=== PATIENT | female | born 1970 | race Caucasian/White ===

== ENCOUNTER 2018-07-29 19:34 | Inpatient (IN) ==
[2018-07-29 20:21] LABS: Basophils # 0.1 K/mm3 (0-0.2); Basophils % 0.5 % (0.1-2.0); Eosinophils # 0.5 K/mm3 (0.0-0.4); Hematocrit 42.7 % (37.0-47.0); Lymphocytes # 3.6 K/mm3 (0.7-4.5); Lymphocytes % 22.4 % (10-50); Mean Corpuscular HGB Conc 32.7 g/dL (31.8-35.4); Mean Corpuscular Hemoglobin 30.1 pg (27.0-31.2); Mean Platelet Volume 7.4 fl (7.4-10.4); Monocytes # 0.9 K/mm3 (0.1-1.0); Monocytes % 5.4 % (1.7-9.3); Neutrophils % 68.8 % (37.0-80.0); Platelet Count 581 K/mm3 (142-424); Red Blood Count 4.64 M/mm3 (4.20-5.40); Red Cell Distribution Width 14.1 % (11.5-17.5)
[2018-07-29 20:31] LABS: Albumin Level 3.8 gm/dL (3.4-5.0); Albumin/Globulin Ratio 0.9 (1.1-1.8); Bilirubin,Total 0.4 mg/dL (0.2-1.0); Calcium 8.9 mg/dL (8.5-10.1); Globulin 4.4 gm/dl (1.3-3.2); Total Protein,Serum 8.2 gm/dL (6.4-8.2)
--- NOTE | 2018-07-29 20:34 | Emergency Department Note ---
ED Disposition Clinical Impression: Enteritis due to Escherichia coli Disposition: Admitted as Observation Condition on Discharge: Good - Critical Care Critical Care Time: No Attestation: On 07/29/18, the high probability of a clinically significant, sudden or life threatening deterioration of the following system(s) required my full and direct attention, intervention and personal management. The time I documented below is in addition to time spent performing reported procedures but includes the following listed in this critical care notation. Medical Decision Making - Medical Records Medical records reviewed: Yes: I reviewed the patient's medical records. - Robert Inquiry Pt receiving controlled substance: No Vital Signs: 07/29/18 19:40 07/29/18 20:30 07/29/18 21:56 Temperature 98.9 F 98.9 F Temperature Source Temporal Artery Scan Temporal Artery Scan Pulse Rate [Right Brachial] 85 80 81 Respiratory Rate 16 16 18 Blood Pressure [Right Arm] 132/70 136/71 133/72 Blood Pressure Mean [Right Arm] 90 92 92 Blood Pressure Source [Right Arm] Automatic Cuff Automatic Cuff Automatic Cuff Blood Pressure Position [Right Arm] Sitting Sitting Sitting 02 Sat by Pulse Oximetry 98 98 98 Oxygen Delivery Method Room Air Room Air Room Air - Lab Data Lab results reviewed: Yes: I reviewed the patient's lab results. Lab Results 07/29/18 19:55: WBC 16.0 H, RBC 4.64, Hgb 14.0, Hct 42.7, MCV 92.0, MCH 30.1, MCHC 32.7, RDW 14.1, Plt Count 581 H, MPV 7.4, Neut % (Auto) 68.8, Lymph % (Auto) 22.4, [place] % (Auto) 5.4, Eos % (Auto) 3.0, Baso % (Auto) 0.5, Neut # (Au to) 11.0 H, Lymph # (Auto) 3.6, [place] # (Auto) 0.9, Eos # (Auto) 0.5 H, Baso # (Auto) 0.1, Total Counted 100, Neutrophils % (Manual) 85 H, Band Neutrophils % 4.0, Lymphocytes % (Manual) 10, Monocytes % (Manual) 1 L, Platelet Estimate Moderate increase, RBC Morphology Normal 07/29/18 19:55: Sodium 135 L, Potassium 4.0, Chloride 101, Carbon Dioxide 21, Anion Gap 17.0 H, BUN 12, Creatinine 0.74, Estimated Creat Clear 103, Estimated GFR 83, Est GFR ( Amer) 101, Glucose 98, Calcium 8.9, Total Bilirubin 0.4, AST 15, ALT 25, Alkaline Phosphatase 149 H, Total Protein 8.2, Albumin 3.8, Globulin 4.4 H, Albumin/Globulin Ratio 0.9 L, Amylase 23 L, Lipase 50 L 07/29/18 19:55: Lactate 0.7 07/29/18 19:55: Influenza Type A Ag Negative, Influenza Type B Ag Negative 07/29/18 19:55: ESR 43 H 07/29/18 19:55: C-Reactive Protein 0.8 07/29/18 20:37: Urine Color Yellow, Urine Appearance Sl cloudy, Urine pH 6.0, Ur Specific [place] 1.010, Urine Protein Negative, Urine Glucose (UA) Negative, Urine Ketones Negative, Urine Blood Negative, Urine Nitrate Negative, Urine Bilirubin Negative, Urine Urobilinogen 0.2, Ur Leukocyte Esterase Negative, Urine WBC Occasional, Ur Squamous Epith Cells 20-50 07/29/18 20:40: Stl Aeromonas (PCR) Not detected, Stl C. cayetanensis PCR Not detected, Stool Rotavirus (PCR) Not detected, Stl Adenov F 40/41 PCR Not detected, Stool Astrovirus (PCR) Not detected, Stool Campylobacter PCR Not detected, Stl C.difficile Tox PCR Not detected, Stool Cryptosporidium PCR Not detected, Stl E.coli Shiga Tox PCR Not detected, Stool E coli O157 PCR Not detected, Stl Enterotoxigenic E PCR Not detected, Stool EPEC (PCR) Detected A, Stool EAEC (PCR) Detected A, Stl E. histolytica PCR Not detected, Stool Giardia Lamblia PCR Not detected, Stool Salmonella PCR Not detected, Stool Sapovirus (PCR) Not detected, Stl P. shigelloides PCR Not detected, Stl Shigella/EIEC PCR Not detected, St Y.enterocolitica PCR Not detected, Stool Vibrio (PCR) Not detected, Stl Vibrio cholerae PCR Not detected, Stl Norovirus GI/GII PCR Not detected Result diagrams: 07/29/18 19:55 07/29/18 19:55 Orders (Tests/Meds): ED MEDICATIONS Generic Name Dose Route Start Last Admin Trade Name Freq PRN Reason Stop Dose Admin Sodium Chloride 1,000 mls @ 999 mls/hr 07/29/18 20:45 07/29/18 20:35 Sod Chlor 0.9% 1000ml Bag IV 07/29/18 21:45 999 mls/hr .Q1H1M DEVON Administration Sodium Chloride 1,000 mls @ 999 mls/hr 07/29/18 22:00 07/29/18 21:55 Sod Chlor 0.9% 1000ml Bag IV 07/29/18 23:00 999 mls/hr .Q1H1M DEVON Administration Discontinued Medications Generic Name Dose Route Start Last Admin Trade Name Freq PRN Reason Stop Dose Admin Methylprednisolone Sodium Succinate 125 mg 07/29/18 21:37 07/29/18 21:39 Solu-Medrol 125mg/2ml Vial IV 07/29/18 21:38 125 mg ONCE ONE Administration Morphine Sulfate 4 mg 07/29/18 22:02 07/29/18 22:04 Morphine 4mg/Ml Syringe IV 07/29/18 22:03 4 mg ONCE ONE Administration Ondansetron HCl 4 mg 07/29/18 21:37 07/29/18 21:39 Zofran 4mg/2ml Vial IV 07/29/18 21:38 4 mg ONCE ONE Administration Ondansetron HCl 4 mg 07/29/18 22:02 Zofran 4mg/2ml Vial IV 07/29/18 22:03 ONCE ONE ORDERS Category Date Time Status CT abdomen pelvis wo con Stat Cat Scan 07/29/18 19:48 Taken XR chest 2V Stat Exams 07/29/18 19:48 Taken Urinalysis and Microscopic Stat Lab 07/29/18 20:37 Ordered Blood Culture Stat Micro 07/29/18 19:55 Received - Radiology Data #1 Image(s): Chest Image Reviewed: Yes I reviewed the patient's radiology image Preliminary Findings: Normal/NAD - CT Data CT Scan: Abdomen, Pelvis Time Received: 23:[address] Reviewed: Yes: I have viewed the radiologist's interpretation Preliminary Findings: Abnormal - Physician Consults Physician Consulted: nydia Reason -: Admission Nausea/Vomiting/Diarrhea HPI - General Chief complaint: Abdominal Pain Stated complaint: Chest congestion,ab pain, passing blood Time Seen by Provider: 07/29/18 20:00 Mode of Arrival: Ambulatory Limitations: No Limitations Description of Symptoms (Recalled from ER Triage Doc. by RN): Pt c/o abd pain with bloody diarrhea, fever, vomiting. Pt has hx of colitis, pancreatitis. Advises pain started around 2am - History of Present Illness HPI Narrative: pt with malaise and fever with abd pain over the last day assoc with bloody diarrhea - has hx of colitis and pancreatitis - no etoh and no known exposure or raw food MD complaint: nausea, vomiting, diarrhea, abdominal pain Onset (ago): day(s) Description of Vomiting: bloody Associated Abdominal Pain: Yes Location of pain: diffuse Severity: moderate Associated symptoms: fever/chills, nausea/vomiting - Related Data Home Medications Medication Instructions Recorded Confirmed Lisinopril/Hydrochlorothiazide 1 tab PO TID 05/26/18 07/29/18 [Lisinopril-Hctz 20-25 mg Tab] cloNIDine HCl [cloNIDine 0.2mg 0.2 mg PO TID 05/26/18 07/29/18 Tablet] Gabapentin [Gabapentin 300mg Cap] 300 mg PO DAILY 07/29/18 07/29/18 Inhaler, Assist Devices 1 each MC DAILY 07/29/18 07/29/18 [Aerochamber Mini] Allergies Allergy/AdvReac Type Severity Reaction Status Date / Time guaifenesin [From ROBITUSSIN] Allergy Intermediate I-HIVES Verified 07/29/18 19:44 ketorolac [From TORADOL] Allergy Intermediate ITCHING/SWE Verified 07/29/18 19:44 LLING pentazocine [From TALWIN] AdvReac Mild VOMITING Verified 07/29/18 19:[address] [facility] History - Hepatitis A Screen Drug use history?: No High risk sexual behaviors?: No History of sexually transmitted infection?: No Currently employed?: No Childcare worker?: No Do you have indoor plumbing?: Yes Do you have electricity?: Yes Attestation statement:: This patient has been screened for Hepatitis A risk factors. I have reviewed the patient's past medical history: Yes Medical History: Denies:: Diabetes Mellitus Type 1, Diabetes Mellitus Type 2 Amputation: No - Social History Alcohol Intake: never - Psychiatric History Expresses thoughts of harming self/others: None Suicide Plan Description: No Plan ROS Obtained: Yes All systems reviewed & no additional complaints - Constitutional Constitutional: Reports fever(s) - Eyes Eyes: Denies change in vision - ENT Ears, Nose, Mouth, and Throat: Denies dizziness, Denies sore throat - Cardiovascular Cardiovascular: Denies chest pain, Denies slow heart rate - Respiratory Respiratory: Yes cough, No coughing up blood - Gastrointestinal Gastrointestingal: Reports: abdominal pain, cramping, diarrhea, bright red blood in stools, nausea, vomiting - Genitourinary Female Genitourinary: Denies hematuria - Musculoskeletal Musculoskeletal: Denies neck pain - Integumentary/Breasts Skin/Breast: Denies rash - Neurologic Neurologic: Denies seizure-like activity Physical Exam - General General appearance: alert, in no apparent distress - Head Head exam: normocephalic - Eye Eye exam: Present: PERRL, EOMI. Absent: scleral icterus - ENT ENT exam: Present: mucous membranes dry - Neck Neck exam: Present: trachea midline - Respiratory Respiratory exam: Present: normal lung sounds bilaterally. Absent: respiratory distress - Cardiovascular Cardiovascular exam: Present: regular rate - Abdominal Exam Abdominal exam: Present: tenderness Abdominal tenderness: Present: diffuse, moderate - Extremities Exam Extremities exam: Present: full ROM - Neurological Exam Neurological exam: Present: alert, oriented X3, CN II-XII intact - Psychiatric Psychiatric exam: Present: normal affect - Skin Skin exam: Absent: rash
[2018-07-29 20:41] LABS: Microscopic, Urine URINE MICROSCOPIC (MICROSCOPIC)
[2018-07-29 20:56] LABS: Appearance,Urine SL CLOUDY (Clear); Bilirubin,Urine Negative (Negative); Blood, Urine Negative (Negative); Color,Urine YELLOW (Yellow); Glucose,Urine (UA) Negative (Negative); Ketones,Urine Negative (Negative); Leukocyte Esterase,Urine Negative (Negative); Protein,Urine Negative (Negative); Urobilinogen,Urine 0.2 EU/dl (0.2)
[2018-07-29 21:00] LABS: Squamous Epithelial Cell,Urine 20-50 #/hpf (0-5); WBC,Urine Occasional #/hpf (0-3)
[2018-07-29 21:12] LABS: Lymphocytes % 10 % (10-50); Monocytes % 1 % (2-9); Neutrophils % 85 % (42-76); RBC Morphology Normal; Total Cells Counted 100
[2018-07-30 06:14] LABS: Basophils % 0.2 % (0.1-2.0); Eosinophils # 0.1 K/mm3 (0.0-0.4); Eosinophils % 0.6 % (0.1-12.0); Hematocrit 38.8 % (37.0-47.0); Hemoglobin 12.7 g/dL (12.2-16.2); Lymphocytes # 1.1 K/mm3 (0.7-4.5); Lymphocytes % 10.3 % (10-50); Mean Corpuscular HGB Conc 32.9 g/dL (31.8-35.4); Mean Corpuscular Hemoglobin 29.8 pg (27.0-31.2); Mean Corpuscular Volume 90.6 fl (81-99); Mean Platelet Volume 7.8 fl (7.4-10.4); Monocytes # 0.1 K/mm3 (0.1-1.0); Neutrophils # 9.6 K/mm3 (1.8-7.8); Neutrophils % 87.9 % (37.0-80.0); Platelet Count 492 K/mm3 (142-424); Red Blood Count 4.28 M/mm3 (4.20-5.40); Red Cell Distribution Width 14.2 % (11.5-17.5); White Blood Count 10.9 K/mm3 (4.8-10.8)
[2018-07-30 06:21] LABS: Anion Gap 15.9 mEq/L (5-15); Calcium 8.3 mg/dL (8.5-10.1); Potassium 3.9 mmoL/L (3.5-5.1)
[2018-07-30 06:45] LABS: Lymphocytes % 14 % (10-50); Neutrophils % 84 % (42-76); RBC Morphology Normal; Total Cells Counted 100
--- NOTE | 2018-07-30 06:57 | History & Physical Report ---
*Admission Date: 07/30/18 *Chief complaint: Abdominal pain *History of present illness: 48-year-old female with history of pancreatic insufficiency and lupus presented to the emergency department with just under 24 hours of left-sided abdominal pain. Patient reports a history of colitis. Her pain had started Tuesday at midnight. Her last meal was a shared family meal of pork and pot roast. After onset of pain patient tried to tough it out at home but when pain did not improve she presented to the hospital for evaluation. In the emergency department she had some retching along with complaint of pain. She had an elevated white blood cell count. She had an abnormal CT scan with a focal area of early inflammation in the sigmoid colon. Her abdominal exam was somewhat benign. Due to the elevated white count, confirmation of E. coli in the stool, retching and level of pain patient was admitted for observation. This morning she states she still feels uncomfortable. She has not had any further retching or vomiting. She has not attempted to have any liquids overnight. She reports her last CT scan was approximately 3 months ago. 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 She describes having a volvulus that did not require surgery. She denies any diagnosis of Crohn's disease or ulcerative colitis, although describes ulcers being found on her upper endoscopy. [facility] History Medical History: Reports:: Arrhythmia, Deep Vein Thrombosis, Hyperlipidemia, H ypertension, Palpitations Denies:: Cancer, Diabetes Mellitus Type 1, Diabetes Mellitus Type 2, MRSA Other Medical History: Reports: Anemia, Arthritis, Fibromyalgia, Hoarseness, Sinus Problems Comment: Pancreatic insufficiency, lupus Laterality Cases: Left: Arthroscopy Knee Other Surgeries: Yes: Cholecystectomy, Colonoscopy, Colostomy, Diagnostic Lap, EGD, Hysterectomy-Partial, Tubal Ligation Amputation: No Fractures: Yes (bilateral upper and lower legs, ribs, orbital socket, shoulders, nasal, toe) - *Social History Educational Level: Completed College Smoking Status: Never smoker Alcohol Intake: never Occupational Status: disabled Housing: house Household Members: significant other, children, friend(s) - Psychiatric History Expresses thoughts of harming self/others: None Suicide Plan Description: No Plan *Family Hx:: Cancer, Hyperlipidemia, Hypertension Review of Systems - Constitutional Denies body ache(s), Denies chills, Denies fever(s) - *Cardiovascular Denies chest pain - *Respiratory Denies cough, Denies shortness of breath - *Gastrointestinal Reports abdominal pain, Reports bloating, Reports change in stools, Reports bright, red blood in stools, Reports constant urge to pass stool, Denies coffee ground vomit, Denies excessive passing of gas - *Neurologic Denies dizziness, Denies seizure-like activity Meds Home Medications Medication Instructions Recorded Confirmed Type Lisinopril/Hydrochlorothiazide 1 tab PO TID 05/26/18 07/29/18 History [Lisinopril-Hctz 20-25 mg Tab] cloNIDine HCl [cloNIDine 0.2mg 0.2 mg PO TID 05/26/18 07/29/18 History Tablet] Gabapentin [Gabapentin 300mg Cap] 300 mg PO DAILY 07/29/18 07/29/18 History Inhaler, Assist Devices 1 each MC DAILY 07/29/18 07/29/18 History [Aerochamber Mini] Allergies Allergy/AdvReac Type Severity Reaction Status Date / Time guaifenesin [From ROBITUSSIN] Allergy Intermediate I-HIVES Verified 07/29/18 19:44 ketorolac [From TORADOL] Allergy Intermediate ITCHING/SWE Verified 07/29/18 19:44 LLING pentazocine [From TALWIN] AdvReac Mild VOMITING Verified 07/29/18 19:44 Exam Vital signs and Labs for Last 24 Hours: Temp Pulse Resp BP Pulse Ox 97 F L 79 16 107/49 L 97 07/30/18 03:39 07/30/18 03:39 07/30/18 03:39 07/30/18 03:39 07/30/18 03:39 Laboratory Results - last 24 hr 07/29/18 19:55: WBC 16.0 H, RBC 4.64, Hgb 14.0, Hct 42.7, MCV 92.0, MCH 30.1, MCHC 32.7, RDW 14.1, Plt Count 581 H, MPV 7.4, Neut % (Auto) 68.8, Lymph % (Auto) 22.4, [place] % (Auto) 5.4, Eos % (Auto) 3.0, Baso % (Auto) 0.5, Neut # (Auto) 11.0 H, Lymph # (Auto) 3.6, [place] # (Auto) 0.9, Eos # (Auto) 0.5 H, Baso # (Auto) 0.1, Total Counted 100, Neutrophils % (Manual) 85 H, Band Neutrophils % 4.0, Lymphocytes % (Manual) 10, Monocytes % (Manual) 1 L, Platelet Estimate Moderate increase, RBC Morphology Normal 07/29/18 19:55: Sodium 135 L, Potassium 4.0, Chloride 101, Carbon Dioxide 21, Anion Gap 17.0 H, BUN 12, Creatinine 0.74, Estimated Creat Clear 103, Estimated GFR 83, Est GFR ( Amer) 101, Glucose 98, Calcium 8.9, Total Bilirubin 0.4, AST 15, ALT 25, Alkaline Phosphatase 149 H, Total Protein 8.2, Albumin 3.8, Globulin 4.4 H, Albumin/Globulin Ratio 0.9 L, Amylase 23 L, Lipase 50 L 07/29/18 19:55: Lactate 0.7 07/29/18 19:55: Influenza Type A Ag Negative, Influenza Type B Ag Negative 07/29/18 19:55: ESR 43 H 07/29/18 19:55: C-Reactive Protein 0.8 07/29/18 20:37: Urine Color Yellow, Urine Appearance Sl cloudy, Urine pH 6.0, Ur Specific [place] 1.010, Urine Protein Negative, Urine Glucose (UA) Negative, Urine Ketones Negative, Urine Blood Negative, Urine Nitrate Negative, Urine Bilirubin Negative, Urine Urobilinogen 0.2, Ur Leukocyte Esterase Negative, Urine WBC Occasional, Ur Squamous Epith Cells 20-50 07/29/18 20:40: Stl Aeromonas (PCR) Not detected, Stl C. cayetanensis PCR Not detected, Stool Rotavirus (PCR) Not detected, Stl Adenov F 40/41 PCR Not detected, Stool Astrovirus (PCR) Not detected, Stool Campylobacter PCR Not detected, Stl C.difficile Tox PCR Not detected, Stool Cryptosporidium PCR Not detected, Stl E.coli Shiga Tox PCR Not detected, Stool E coli O157 PCR Not detected, Stl Enterotoxigenic E PCR Not detected, Stool EPEC (PCR) Detected A, Stool EAEC (PCR) Detected A, Stl E. histolytica PCR Not detected, Stool Giardia Lamblia PCR Not detected, Stool Salmonella PCR Not detected, Stool Sapovirus (PCR) Not detected, Stl P. shigelloides PCR Not detected, Stl Shigella/EIEC PCR Not detected, St Y.enterocolitica PCR Not detected, Stool Vibrio (PCR) Not detected, Stl Vibrio cholerae PCR Not detected, Stl Norovirus GI/GII PCR Not detected 07/30/18 05:30: WBC 10.9 H D, RBC 4.28, Hgb 12.7, Hct 38.8, MCV 90.6, MCH 29.8, MCHC 32.9, RDW 14.2, Plt Count 492 H, MPV 7.8, Neut % (Auto) 87.9 H, Lymph % (Auto) 10.3, [place] % (Auto) 1.0 L, Eos % (Auto) 0.6, Baso % (Auto) 0.2, Neut # (Auto) 9.6 H, Lymph # (Auto) 1.1, [place] # (Auto) 0.1, Eos # (Auto) 0.1, Baso # (Auto) 0.0, Total Counted 100, Neutrophils % (Manual) 84 H, Band Neutrophils % 2.0, Lymphocytes % (Manual) 14, Platelet Estimate Slight increase, RBC Morphology Normal 07/30/18 05:30: Sodium 137, Potassium 3.9, Chloride 105, Carbon Dioxide 20 L, Anion Gap 15.9 H, BUN 8 D, Creatinine 0.77, Estimated Creat Clear 106, Estimated GFR 80, Est GFR ( Amer) 96, Glucose 170 H D, Calcium 8.3 L I & O for Last 24 hours: Intake & Output 07/27/18 07/28/18 07/29/18 07/30/18 11:59 11:59 11:59 11:59 Intake Total 669 / 669 Output Total 1250 / 1250 Balance -581 / -581 Weight 167 lb 12.8 oz Narrative: Patient is awake and alert. She is laying in the position on her left side she does not appear to be in any pain. ENT exam reveals a moist shayy pharynx. Neck is without lymphadenopathy. Lungs are clear to auscultation. Heart has a regular rate and rhythm. Abdomen is soft, nontender, nondistended. Skin is without rashes. Patient has intact motor function of all extremities Assessment and Plan (1) E. coli colitis Current visit: Yes Status: Acute Category: Medical Code(s): A04.4 - Other intestinal Escherichia coli infections (2) Pancreatic insufficiency Current visit: Yes Status: Acute Category: Medical Code(s): K86.89 - Other specified diseases of pancreas (3) Lupus Current visit: Yes Status: Acute Category: Medical Code(s): M32.9 - Systemic lupus erythematosus, unspecified - Assessment and plan all Dx Assessment and Plan for all problems:: 1. Patient has been admitted for supportive care of IV fluids and intravenous narcotics for pain control. I am going to add some antispasmodics such as dicyclomine to try to help with her abdominal pain. She has been placed on a clear liquid diet. 2. Attempt to get records from [facility] in [place] which is where her prior procedures have been done
--- NOTE | 2018-07-30 14:08 | Pharmacy Consult Notes ---
[facility] Pharmacy VTE Monitoring - Patient Demographics Admission date: 07/29/18 Report Date: 07/30/18 Time: 14:07 Allergies/Adverse Reactions: Patient Allergies guaifenesin [From ROBITUSSIN] Allergy (Intermediate, Verified 07/29/18 19:44) I-HIVES ketorolac [From TORADOL] Allergy (Intermediate, Verified 07/29/18 19:44) ITCHING/SWELLING pentazocine [From TALWIN] Adverse Reaction (Mild, Verified 07/29/18 19:44) VOMITING Height: 1.57 m Weight: 76.113 kg Patient Problems: Current Active Problems Enteritis due to Escherichia coli (Acute) E. coli colitis (Acute) Pancreatic insufficiency (Acute) Lupus (Acute) - VTE Risk Labs: VTE Related Lab Results Hgb 12.7 g/dL (12.2-16.2) 07/30/18 05:30 Hct 38.8 % (37.0-47.0) 07/30/18 05:30 Plt Count 492 K/mm3 (142-424) H 07/30/18 05:30 BUN 8 mg/dL (7-18) D 07/30/18 05:30 Creatinine 0.77 mg/dL (0.55-1.02) 07/30/18 05:30 Estimated Creat Clear 106 mL/min (50-200) 07/30/18 05:30 Was VTE Risk Assessment Performed: Yes VTE Score: 8 VTE Risk Level: Moderate Risk - Prophylaxis VTE Prophylaxis Ordered?: Yes Types of VTE Prophylaxis: TEDS Knee High Location of Applied Device: Bilateral Lower Extremeties
--- NOTE | 2018-07-31 07:05 | Discharge Summary ---
General - General Admission date:: 07/30/18 Discharge date: 07/31/18 HPI HPI: 48-year-old female with history of pancreatic insufficiency and lupus presented to the emergency department with just under 24 hours of left-sided abdominal pain. Patient reports a history of colitis. Her pain had started Tuesday at midnight. Her last meal was a shared family meal of pork and pot roast. After onset of pain patient tried to tough it out at home but when pain did not improve she presented to the hospital for evaluation. In the emergency department she had some retching along with complaint of pain. She had an elevated white blood cell count. She had an abnormal CT scan with a focal area of early inflammation in the sigmoid colon. Her abdominal exam was somewhat benign. Due to the elevated white count, confirmation of E. coli in the stool, retching and level of pain patient was admitted for observation. This morning she states she still feels uncomfortable. She has not had any further retching or vomiting. She has not attempted to have any liquids overnight. She reports her last CT scan was approximately 3 months ago. 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 She describes having a volvulus that did not require surgery. She denies any diagnosis of Crohn's disease or ulcerative colitis, although describes ulcers being found on her upper endoscopy. Hospital Course Hospital Course: Placed on IV fluids, given morphine for pain, given Zofran and Phenergan as an antiemetic. Patient did continue to have loose stools although the amount of blood in her stools decreased with each subsequent stool. Abdominal pain in the left lower quadrant began to improve. Patient tolerated clear liquids. On the morning of the pain was better than on admission. She was tolerating liquids. She was discharged home and will follow up with her primary care physician Dr. Allen later this week. Objective Vital signs: Temp Pulse Resp BP Pulse Ox 98.0 F 99 H 22 143/92 H 97 07/31/18 04:00 07/31/18 04:00 07/31/18 04:00 07/31/18 04:00 07/31/18 04:00 Narrative: Discharge exam: Patient looks well. Lungs were clear. Heart had a regular rate and rhythm. Abdomen is soft and nontender DS: Diagnosis - Discharge Diagnosis (1) E. coli colitis Status: Acute (2) Pancreatic insufficiency Status: Acute (3) Lupus Status: Acute Discharge Plan - Patient Discharge Instructions ACTIVITY: Continue current activity DIET: continue same diet - Follow up Plan Follow up with: Gordy Cruz [Primary Care Provider] - 1 week Disposition: Home, Self-Long Term Medications: Home Medications Medication Instructions Recorded Confirmed Type cloNIDine HCl [cloNIDine 0.2mg 0.2 mg PO TID 05/26/18 07/30/18 History Tablet] Gabapentin [Gabapentin 300mg Cap] 600 mg PO TID 07/29/18 07/30/18 History Inhaler, Assist Devices 1 each MC DAILY 07/29/18 07/30/18 History [Aerochamber Mini] Carisoprodol [Soma 350mg tablet] 350 mg PO BIDP PRN 07/30/18 07/30/18 History Lisinopril/Hydrochlorothiazide 1 tab PO BID 07/30/18 07/30/18 History [Lisinopril-Hctz 20-25 mg Tab] Prescriptions/Medication Reconciliation: New Lactulose [Generlac] 10 gm PO TIDP PRN #360 solution PRN Reason: Constipation Continue cloNIDine HCl [cloNIDine 0.2mg Tablet] 0.2 mg PO TID Inhaler, Assist Devices [Aerochamber Mini] 1 each MC DAILY Gabapentin [Gabapentin 300mg Cap] 600 mg PO TID Carisoprodol [Soma 350mg tablet] 350 mg PO BIDP PRN PRN Reason: MUSCLE SPASMS Lisinopril/Hydrochlorothiazide [Lisinopril-Hctz 20-25 mg Tab] 1 tab PO BID
== END 2018-07-31 13:10 | disposition home or self-care (01) ==
LOC: ER 19:34 → ICU 19:34
PROVIDERS: ADMIT Family Medicine; ATTEND Family Medicine
CPT/HCPCS: 36415; 71020; 71046; 74176; 80048; 80053; 81001; 82150; 83605; 83690; 85007; 85025; 85651; 86140; 87040; 87275; 87276; 87507; 96365; 96375; 99285; G0378; J2405

== ENCOUNTER 2018-09-02 12:16 | Observation (INO) ==
[2018-09-02 12:50] LABS: Microscopic, Urine URINE MICROSCOPIC (MICROSCOPIC)
[2018-09-02 12:52] LABS: Appearance,Urine CLEAR (Clear); Bilirubin,Urine Negative (Negative); Blood, Urine 1+ (Negative); Color,Urine YELLOW (Yellow); Glucose,Urine (UA) Negative (Negative); Ketones,Urine Negative (Negative); Leukocyte Esterase,Urine Negative (Negative); Protein,Urine Negative (Negative); Urobilinogen,Urine 0.2 EU/dl (0.2)
[2018-09-02 12:53] LABS: Basophils # 0.1 K/mm3 (0-0.2); Basophils % 1.1 % (0.1-2.0); Eosinophils # 0.2 K/mm3 (0.0-0.4); Eosinophils % 2.7 % (0.1-12.0); Hematocrit 38.1 % (37.0-47.0); Hemoglobin 12.8 g/dL (12.2-16.2); Lymphocytes # 3.1 K/mm3 (0.7-4.5); Lymphocytes % 39.8 % (10-50); Mean Corpuscular HGB Conc 33.7 g/dL (31.8-35.4); Mean Corpuscular Hemoglobin 30.3 pg (27.0-31.2); Mean Corpuscular Volume 89.9 fl (81-99); Mean Platelet Volume 7.2 fl (7.4-10.4); Monocytes # 0.3 K/mm3 (0.1-1.0); Monocytes % 3.7 % (1.7-9.3); Neutrophils # 4.1 K/mm3 (1.8-7.8); Neutrophils % 52.7 % (37.0-80.0); Platelet Count 418 K/mm3 (142-424); Red Blood Count 4.24 M/mm3 (4.20-5.40); Red Cell Distribution Width 13.8 % (11.5-17.5); White Blood Count 7.8 K/mm3 (4.8-10.8)
[2018-09-02 12:59] LABS: WBC,Urine Occasional #/hpf (0-3)
[2018-09-02 13:00] LABS: Bacteria,Urine Trace /lpf
--- NOTE | 2018-09-02 13:18 | Emergency Department Note ---
ED Disposition Clinical Impression: Systemic lupus erythematosus, Colitis, Intractable vomiting with nausea, Dehydration, Pancreatic insufficiency, Sinus bradycardia Disposition: Still a Patient Condition on Discharge: Fair Instructions: DI for Acute Abdomen Referrals: Gordy Cruz [Primary Care Provider] - - Critical Care Critical Care Time: No Attestation: On 09/02/18, the high probability of a clinically significant, sudden or life threatening deterioration of the following system(s) required my full and direct attention, intervention and personal management. The time I documented below is in addition to time spent performing reported procedures but includes the foll owing listed in this critical care notation. Medical Decision Making - Medical Records Medical records reviewed: Yes: I reviewed the patient's medical records. - Robert Inquiry Pt receiving controlled substance: No Robert was queried for this patient: No Vital Signs: 09/02/18 12:28 09/02/18 14:41 Temperature 98 F Temperature Source Oral Pulse Rate [Left Radial] 66 44 L Respiratory Rate 16 Blood Pressure [Right Arm] 144/82 H 126/75 Blood Pressure Mean [Right Arm] 102 92 Blood Pressure Source [Right Arm] Automatic Cuff Blood Pressure Position [Right Arm] Sitting Sitting 02 Sat by Pulse Oximetry 97 100 Oxygen Delivery Method Room Air Room Air - Lab Data Lab Results 09/02/18 12:25: Urine Color Yellow, Urine Appearance Clear, Urine pH 6.0, Ur Specific [place] 1.010, Urine Protein Negative, Urine Glucose (UA) Negative, Urine Ketones Negative, Urine Blood 1+, Urine Nitrate Negative, Urine Bilirubin Negative, Urine Urobilinogen 0.2, Ur Leukocyte Esterase Negative, Urine RBC 10- 20, Urine WBC Occasional, Ur Squamous Epith Cells 3-5, Urine Bacteria Trace 09/02/18 12:40: WBC 7.8, RBC 4.24, Hgb 12.8, Hct 38.1, MCV 89.9, MCH 30.3, MCHC 33.7, RDW 13.8, Plt Count 418, MPV 7.2 L, Neut % (Auto) 52.7, Lymph % (Auto) 39.8, [place] % (Auto) 3.7, Eos % (Auto) 2.7, Baso % (Auto) 1.1, Neut # (Auto) 4.1, Lymph # (Auto) 3.1, [place] # (Auto) 0.3, Eos # (Auto) 0.2, Baso # (Auto) 0.1 09/02/18 13:50: Sodium 141, Potassium 3.9, Chloride 105, Carbon Dioxide 25, Anion Gap 14.9, BUN 10, Creatinine 0.67, Estimated Creat Clear 109, Estimated GFR 94, Est GFR ( Amer) 113, Glucose 90, Calcium 8.9, Total Bilirubin 0.3, AST 15, ALT 30, Alkaline Phosphatase 123 H, Total Protein 7.2, Albumin 3.6, Globulin 3.6 H, Albumin/Globulin Ratio 1.0 L, Amylase 22 L, Lipase 54 L Result diagrams: 09/02/18 12:40 09/02/18 13:50 Orders (Tests/Meds): ED MEDICATIONS Generic Name Dose Route Start Last Admin Trade Name Freq PRN Reason Stop Dose Admin Sodium Chloride 1,000 mls @ 999 mls/hr 09/02/18 12:45 09/02/18 13:26 Sod Chlor 0.9% 1000ml Bag IV 09/02/18 13:45 999 mls/hr .Q1H1M DEVON Administration Sodium Chloride 10 ml 09/02/18 12:34 09/02/18 13:39 Saline Flush 10ml Syringe IV 10/02/18 12:33 10 ml NEEDED PRN Administration Maintain IV Site Discontinued Medications Generic Name Dose Route Start Last Admin Trade Name Freq PRN Reason Stop Dose Admin Morphine Sulfate 2 mg 09/02/18 13:14 09/02/18 13:39 Morphine 2mg/Ml Syringe IV 09/02/18 13:15 2 mg ONCE ONE Administration Promethazine HCl 12.5 mg 09/02/18 13:14 09/02/18 13:39 Phenergan 25mg/Ml 1ml Vial IV 09/02/18 13:15 12.5 mg ONCE ONE Administration Sodium Chloride 25 ml 09/02/18 13:14 09/02/18 13:39 Sod Chlor 0.9% 25ml Bag IV 09/02/18 13:15 25 ml ONCE ONE Administration ORDERS Category Date Time Status Urinalysis and Microscopic Stat Lab 09/02/18 12:25 Ordered 12-lead EKG Request [ECG Request by /Rakan] Stat Y 09/02/18 14:48 Ordered - CT Data CT Scan: Abdomen, Pelvis Time Received: 15:[address] Reviewed: Yes: I have viewed the radiologist's interpretation Preliminary Findings: Normal/NAD, Abnormal Findings Narrative: There IMPRESSION: Large amount of right-sided stool, there is no evidence of renal or ureteral calculi and there is no obstructive uropathy of either kidney. No evidence of possible colitis lower sigmoid colon which was mentioned previously Medical Decision Narrative: 1455 Patient developed sinus bradycardia 44 obtained an EKG 12-lead with a 49/min Baseline artifact no AV block. She was unable to tolerate p.o. intake. I spoke with Dr. Longo who agreed to admit the patient for telemetry monitoring and IV rehydration therapy. He recommended to order a diarrhea panel.. Nausea/Vomiting/Diarrhea HPI - General Chief complaint: Abdominal Pain Stated complaint: possible cholitis Time Seen by Provider: 09/02/18 12:40 Mode of Arrival: Ambulatory Limitations: No Limitations Description of Symptoms (Recalled from ER Triage Doc. by RN): to ed per pvt car with c/o lt side abd pain starting yesterday +nausea, +vomiting, +diarrhea x 6 with blood noted. pt with hx of "colitis and pancreatitis" admitted in jul with same. cpta none - History of Present Illness HPI Narrative: 48 years old white female with complex past medical history including hyp ertension, systemic lupus erythematosus, pancreatitis, and recurrent colitis. 4 days ago she developed nausea followed by vomiting 3 times a day until she is dry heaving. Yesterday she developed diarrhea watery brown in color turning into mucus and started getting dehydrated. Patient complains of dull aching pain involving her abdomen with no localization rated 4/10. Patient is a status post hysterectomy appendectomy and cholecystectomy. MD complaint: nausea, vomiting, diarrhea, abdominal pain Onset (ago): day(s) (Started 4 days ago.) Description of Vomiting: watery Description of Diarrhea: water, mucous Associated Abdominal Pain: Yes Location of pain: diffuse Severity: moderate Severity scale (1-10): 4 Quality: aching, dull Consistency: intermittent Relieving factors: none Exacerbating factors: none Context: other (History of lupus erythematosus, pancreatitis and prior colitis in July 2018. ) - Related Data Home Medications Medication Instructions Recorded Confirmed cloNIDine HCl [cloNIDine 0.2mg 0.2 mg PO TID 05/26/18 09/02/18 Tablet] Gabapentin [Gabapentin 300mg Cap] 600 mg PO TID 07/29/18 09/02/18 Inhaler, Assist Devices 1 each MC DAILY 07/29/18 09/02/18 [Aerochamber Mini] Lisinopril/Hydrochlorothiazide 1 tab PO BID 07/30/18 09/02/18 [Lisinopril-Hctz 20-25 mg Tab] Lipase/Protease/Amylase [Creon Dr 1 each PO DAILY 09/02/18 09/02/18 3,000 Units Capsule] Allergies Allergy/AdvReac Type Severity Reaction Status Date / Time guaifenesin [From ROBITUSSIN] Allergy Intermediate I-HIVES Verified 07/29/18 19:44 ketorolac [From TORADOL] Allergy Intermediate ITCHING/SWE Verified 07/29/18 19:44 LLING pentazocine [From TALWIN] AdvReac Mild VOMITING Verified 07/29/18 19:44 [facility] History - Hepatitis A Screen Drug use history?: No High risk sexual behaviors?: No History of sexually transmitted infection?: No Currently employed?: No Childcare worker?: No Do you have indoor plumbing?: Yes Do you have electricity?: Yes Attestation statement:: This patient has been screened for Hepatitis A risk factors. I have reviewed the patient's past medical history: Yes Medical History: Reports:: Arrhythmia, Deep Vein Thrombosis, Hyperlipidemia, Hy pertension, Palpitations Denies:: Cancer, Diabetes Mellitus Type 1, Diabetes Mellitus Type 2, MRSA Other Medical History: Reports: Anemia, Arthritis, Fibromyalgia, Hoarseness, Sinus Problems Comment: Pancreatic insufficiency, lupus Laterality Cases: Left: Arthroscopy Knee Other Surgeries: Yes: Cholecystectomy, Colonoscopy, Colostomy, Diagnostic Lap, EGD, Hysterectomy-Partial, Tubal Ligation Amputation: No Fractures: Yes (bilateral upper and lower legs, ribs, orbital socket, shoulders, nasal, toe) - Social History Smoking Status: Never smoker Alcohol Intake: never Occupational Status: disabled Housing: house Household Members: significant other, children, friend(s) - Psychiatric History Expresses thoughts of harming self/others: None Suicide Plan Description: No Plan Family Hx:: Cancer, Hyperlipidemia, Hypertension ROS Obtained: Yes All systems reviewed & no additional complaints Physical Exam - General General appearance: alert, in no apparent distress - Head Head exam: atraumatic, normocephalic, normal inspection - Eye Eye exam: Present: normal appearance, PERRL, EOMI. Absent: scleral icterus, nystagmus - ENT ENT exam: Present: normal exam, normal oropharynx, mucous membranes dry, TM's normal bilaterally, normal external ear exam. Absent: mucous membranes moist - Neck Neck exam: Present: normal inspection, full ROM, trachea midline. Absent: tenderness, meningismus, lymphadenopathy - Chest Chest inspection: Present: normal inspection, symmetric chest wall rise. Absent: tenderness - Respiratory Respiratory exam: Present: normal lung sounds bilaterally. Absent: respiratory distress, wheezes - Cardiovascular Cardiovascular exam: Present: regular rate, normal rhythm, normal heart sounds. Absent: JVD - Abdominal Exam Abdominal exam: Present: soft, normal bowel sounds. Absent: distention, tenderness, guarding, rebound, rigidity, Reyna's sign, tenderness at McBurney's Point - External exam: Present: normal external exam - Extremities Exam Extremities exam: Present: normal inspection, full ROM, normal capillary refill. Absent: tenderness, calf tenderness - Back Exam Back exam: Present: normal inspection, CVA tenderness (L). Absent: tenderness, CVA tenderness (R) - Neurological Exam Neurological exam: Present: alert, oriented X3, CN II-XII intact, motor sensory deficit, reflexes normal - Psychiatric Psychiatric exam: Present: normal affect, normal mood - Skin Skin exam: Present: warm, dry, intact, normal color - Lymphatic Lymphatic Findings: no adenopathy
[2018-09-02 14:42] LABS: Albumin Level 3.6 gm/dL (3.4-5.0); Anion Gap 14.9 mEq/L (5-15); Bilirubin,Total 0.3 mg/dL (0.2-1.0); Calcium 8.9 mg/dL (8.5-10.1); Globulin 3.6 gm/dl (1.3-3.2); Potassium 3.9 mmoL/L (3.5-5.1); Total Protein,Serum 7.2 gm/dL (6.4-8.2)
[2018-09-03 07:57] LABS: Basophils # 0.1 K/mm3 (0-0.2); Eosinophils # 0.2 K/mm3 (0.0-0.4); Eosinophils % 3.4 % (0.1-12.0); Hematocrit 37.7 % (37.0-47.0); Hemoglobin 12.4 g/dL (12.2-16.2); Lymphocytes # 3.2 K/mm3 (0.7-4.5); Lymphocytes % 45.9 % (10-50); Mean Corpuscular HGB Conc 32.9 g/dL (31.8-35.4); Mean Corpuscular Hemoglobin 29.5 pg (27.0-31.2); Mean Corpuscular Volume 89.6 fl (81-99); Monocytes # 0.3 K/mm3 (0.1-1.0); Monocytes % 4.3 % (1.7-9.3); Neutrophils # 3.1 K/mm3 (1.8-7.8); Neutrophils % 45.4 % (37.0-80.0); Platelet Count 363 K/mm3 (142-424); Red Cell Distribution Width 14.1 % (11.5-17.5); White Blood Count 6.9 K/mm3 (4.8-10.8)
[2018-09-03 08:03] LABS: Anion Gap 12.6 mEq/L (5-15); Calcium 8.3 mg/dL (8.5-10.1); Potassium 3.6 mmoL/L (3.5-5.1)
--- NOTE | 2018-09-03 10:54 | Pharmacy Consult Notes ---
[facility] Pharmacy VTE Monitoring - Patient Demographics Admission date: 09/02/18 Report Date: 09/03/18 Time: 10:54 Allergies/Adverse Reactions: Patient Allergies guaifenesin [From ROBITUSSIN] Allergy (Intermediate, Verified 07/29/18 19:44) I-HIVES ketorolac [From TORADOL] Allergy (Intermediate, Verified 07/29/18 19:44) ITCHING/SWELLING Gadolinium-Containing Contrast Medi Allergy (Verified 09/02/18 15:32) pentazocine [From TALWIN] Adverse Reaction (Mild, Verified 07/29/18 19:44) VOMITING Height: 1.57 m Weight: 79.464 kg Patient Problems: Current Active Problems Pancreatic insufficiency (Acute) Systemic lupus erythematosus (Acute) Colitis (Acute) Intractable vomiting with nausea (Acute) Dehydration (Acute) Sinus bradycardia (Acute) - VTE Risk Labs: VTE Related Lab Results Hgb 12.4 g/dL (12.2-16.2) 09/03/18 07:25 Hct 37.7 % (37.0-47.0) 09/03/18 07:25 Plt Count 363 K/mm3 (142-424) 09/03/18 07:25 BUN 7 mg/dL (7-18) D 09/03/18 07:25 Creatinine 0.75 mg/dL (0.55-1.02) 09/03/18 07:25 Estimated Creat Clear 114 mL/min (50-200) 09/03/18 07:25 Was VTE Risk Assessment Performed: Yes VTE Score: 5 VTE Risk Level: Low Risk - Prophylaxis VTE Prophylaxis Ordered?: Yes Types of VTE Prophylaxis: TEDS Knee High Location of Applied Device: Bilateral Lower Extremeties - VTE Diagnosis Confirmed Treatment or plan recommended: Continue Current Treatment
--- NOTE | 2018-09-03 12:38 | History & Physical Report ---
*Admission Date: 09/02/18 *Chief complaint: vomiting, diarrhea, abdominal pain *History of present illness: Ms. Tapia is a 48-year-old white female with a history of hypertension, chronic pancreatitis, pancreatic insufficiency, lupus erythematosus, and hiatal hernia who presented to the emergency room yesterday afternoon with a 3-4-day history of persistent nausea, vomiting and what she describes as explosive diarrhea with some blood, associated with abdominal pain. Of note she was just hospitalized at [facility] in July with E. coli colitis. She states she has never felt completely well since that time. 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 She has seen Dr. Mehta from in the past. She states on her most recent upper and lower endoscopy last fall she was told she had an ulcer in her esophagus and some type of infection as well as an ulcer in her colon. She does not recall being diagnosed with H. pylori, Crohn's disease, or ulcerative colitis. She is treated with pancreatic enzymes and Protonix. SHe does not recall ever having an ERCP or MRCP. On evaluation in the emergency room, her abdominal CT scan showed resolution of the previously noted sigmoid colitis from her July CT scan. Her white count was normal and pancreatic enzymes were normal. Because of her intractable nausea and and her abdominal pain she has been admitted for further evaluation and treatment. Overnight she has persisted with nausea and mostly dry heaves. She has had no stool since being admitted to the hospital therefore no stool panel has been obtained. She localizes her pain mostly in the left side of the abdomen. No history of fever. She was also noted to be bradycardic in the emergency room and she states this is new. She has a history of hypertension and has had a cardiac workup including an echocardiogram which she states was normal. She has not been able to tolerate any oral medications since admission. [facility] History Medical History: Reports:: Deep Vein Thrombosis, Gastrointestinal Bleed, Hiatal Hernia, Hyperlipidemia, Hypertension, Palpitations Denies:: Atherosclerotic Heart Disease, Atrial Fibrillation, Cancer, Diabetes Mellitus Type 1, Diabetes Mellitus Type 2, MRSA Have you ever received a pneumonia vaccine?: No Have you received a flu vaccine this season?: No Other Medical History: Reports: Anemia, Arthritis, Fibromyalgia, Hoarseness, Sinus Problems, Other (systemic lupus; Degenerative disc disease) Laterality Cases: Left: Arthroscopy Knee Other Surgeries: Yes: Cholecystectomy, Colonoscopy, Diagnostic Lap, EGD, Hysterectomy-Partial, Tubal Ligation Amputation: No Fractures: Yes (bilateral upper and lower legs, ribs, orbital socket, shoulders, nasal, toe) - *Social History Educational Level: Attended College Smoking Status: Never smoker Alcohol Intake: never Occupational Status: disabled Housing: house Household Members: significant other, children, friend(s) Travel in the last 8 weeks: None - Psychiatric History Expresses thoughts of harming self/others: None Suicide Plan Description: No Plan *Family Hx:: Cancer, Hyperlipidemia, Hypertension Review of Systems - Constitutional Reports weakness - Eyes Denies blurry vision, Denies change in vision - ENT Denies dizziness, Denies ear pain, Denies nosebleed, Denies hearing loss, Denies nasal congestion - *Cardiovascular Denies chest pain, Denies shortness of breath, Denies generalized swelling - *Respiratory Denies chest congestion, Denies cough - *Gastrointestinal Comments: SEE HPI - *Genitourinary Denies abnormal vaginal bleeding, Denies blood in urine, Denies urinary incontinence, Denies urinary urgency, Denies vaginal discharge - *Musculoskeletal Reports joint pain, Reports back pain - Integumentary/Breasts Denies hair loss, Denies change in hair, Denies unusual bruising - *Neurologic Denies abnormal walking, Denies seizure-like activity, Denies tingling/numbness/burning sensations - Psychiatric Reports abnormal sleep pattern, Denies confusion, Denies depression - Endocrine Denies cold intolerance, Denies excessive sweating, Denies flushing, Denies increased thirst - Hematologic/Lymphatic Denies easy bleeding, Denies easy bruising - Allergic/Immunologic Denies seasonal runny nose Meds Home Medications Medication Instructions Recorded Confirmed Type cloNIDine HCl [cloNIDine 0.2mg 0.2 mg PO TID 05/26/18 09/02/18 History Tablet] Gabapentin [Gabapentin 300mg Cap] 600 mg PO TIDP PRN 07/29/18 09/03/18 History Lisinopril/Hydrochlorothiazide 1 tab PO BID 07/30/18 09/02/18 History [Lisinopril-Hctz 20-25 mg Tab] Lipase/Protease/Amylase [Creon Dr 1 each PO DAILY 09/02/18 09/02/18 History 3,000 Units Capsule] Carisoprodol [Soma 350mg tablet] 350 mg PO BIDP PRN 09/03/18 09/03/18 History Allergies Allergy/AdvReac Type Severity Reaction Status Date / Time guaifenesin [From ROBITUSSIN] Allergy Intermediate I-HIVES Verified 07/29/18 19:44 ketorolac [From TORADOL] Allergy Intermediate ITCHING/SWE Verified 07/29/18 19:44 LLING Gadolinium-Containing Allergy Verified 09/02/18 15:32 Contrast Medi pentazocine [From TALWIN] AdvReac Mild VOMITING Verified 07/29/18 19:44 Exam Vital signs and Labs for Last 24 Hours: Temp Pulse Resp BP Pulse Ox 98.8 F 80 17 156/96 H 97 09/03/18 11:13 09/03/18 11:13 09/03/18 11:13 09/03/18 11:13 09/03/18 11:13 Laboratory Results - last 24 hr 09/02/18 12:25: Urine Color Yellow, Urine Appearance Clear, Urine pH 6.0, Ur Specific [place] 1.010, Urine Protein Negative, Urine Glucose (UA) Negative, Urine Ketones Negative, Urine Blood 1+, Urine Nitrate Negative, Urine Bilirubin Negative, Urine Urobilinogen 0.2, Ur Leukocyte Esterase Negative, Urine RBC 10- 20, Urine WBC Occasional, Ur Squamous Epith Cells 3-5, Urine Bacteria Trace 09/02/18 12:40: WBC 7.8, RBC 4.24, Hgb 12.8, Hct 38.1, MCV 89.9, MCH 30.3, MCHC 33.7, RDW 13.8, Plt Count 418, MPV 7.2 L, Neut % (Auto) 52.7, Lymph % (Auto) 39.8, [place] % (Auto) 3.7, Eos % (Auto) 2.7, Baso % (Auto) 1.1, Neut # (Auto) 4.1, Lymph # (Auto) 3.1, [place] # (Auto) 0.3, Eos # (Auto) 0.2, Baso # (Auto) 0.1 09/02/18 13:50: Sodium 141, Potassium 3.9, Chloride 105, Carbon Dioxide 25, Anion Gap 14.9, BUN 10, Creatinine 0.67, Estimated Creat Clear 109, Estimated GFR 94, Est GFR ( Amer) 113, Glucose 90, Calcium 8.9, Total Bilirubin 0.3, AST 15, ALT 30, Alkaline Phosphatase 123 H, Total Protein 7.2, Albumin 3.6, Globulin 3.6 H, Albumin/Globulin Ratio 1.0 L, Amylase 22 L, Lipase 54 L 09/03/18 07:25: WBC 6.9, RBC 4.20, Hgb 12.4, Hct 37.7, MCV 89.6, MCH 29.5, MCHC 32.9, RDW 14.1, Plt Count 363, MPV 7.0 L, Neut % (Auto) 45.4, Lymph % (Auto) 45.9, [place] % (Auto) 4.3, Eos % (Auto) 3.4, Baso % (Auto) 1.0, Neut # (Auto) 3.1, Lymph # (Auto) 3.2, [place] # (Auto) 0.3, Eos # (Auto) 0.2, Baso # (Auto) 0.1 09/03/18 07:25: Sodium 142, Potassium 3.6, Chloride 109 H, Carbon Dioxide 24, Anion Gap 12.6, BUN 7 D, Creatinine 0.75, Estimated Creat Clear 114, Estimated GFR 82, Est GFR ( Amer) 99, Glucose 107 H, Calcium 8.3 L, Magnesium 1.6 I & O for Last 24 hours: Intake & Output 09/01/18 09/02/18 09/03/18 09/04/18 11:59 11:59 11:59 11:59 Intake Total Balance Weight 175 lb 3 oz Narrative: She is alert and oriented and appears in mild to moderate distress. She is lying in bed on her right side with her knees drawn up and HOB elevated at 30 degrees. Color is adequate. HEENT shows the cranium to be atraumatic and normocephalic. Sclerae and conjunctive are clear. Nares patent. Oropharynx shows slightly dry mucous membranes. Neck is supple with no masses, thyromegaly, or bruits. Lungs are clear to auscultation. Heart is regular with no murmurs. Abdomen is soft and nondistended. There is mild diffuse abdominal tenderness; left slightly worse than right. Bowel sounds are present but diminished. No rebound or guarding. Extremities show no edema. Assessment and Plan (1) Intractable vomiting with nausea Current visit: Yes Status: Acute Category: Medical Code(s): R11.2 - Nausea with vomiting, unspecified (2) Abdominal pain Current visit: Yes Status: Acute Category: Medical Code(s): R10.9 - Unspecified abdominal pain (3) HBP (high blood pressure) Current visit: Yes Status: Acute Category: Medical Code(s): I10 - Essential (primary) hypertension (4) Hiatal hernia Current visit: Yes Status: Acute Category: Medical Code(s): K44.9 - Diaphragmatic hernia without obstruction or gangrene (5) Pancreatic insufficiency Current visit: Yes Status: Acute Category: Medical Code(s): K86.89 - Other specified diseases of pancreas (6) Sinus bradycardia Current visit: Yes Status: Acute Category: Medical Code(s): R00.1 - Bradycardia, unspecified (7) Systemic lupus erythematosus Current visit: Yes Status: Acute Category: Medical Code(s): M32.9 - Systemic lupus erythematosus, unspecified - Assessment and plan all Dx Assessment and Plan for all problems:: She has been admitted for further evaluation and treatment. She has been receiving Zofran and Phenergan. IV access has been a bit of a problem but currently has an IV in her right antecubital space. She is receiving IV Pepcid. She has not been able to tolerate any oral medications. PCR diarrhea panel has been ordered but not obtained as she has not produced any stool since admission. We will plan to consult Dr. Velarde for further recommendations. She wishes to establish GI follow-up in this area. She has been in sinus bradycardia in the 50s. It is likely related to her clonidine. Blood pressure has been normal to slightly elevated. We will continue to monitor.
[2018-09-04 07:06] LABS: Albumin Level 3.4 gm/dL (3.4-5.0); Albumin/Globulin Ratio 0.9 (1.1-1.8); Anion Gap 12.7 mEq/L (5-15); Bilirubin,Total 0.5 mg/dL (0.2-1.0); Calcium 8.5 mg/dL (8.5-10.1); Globulin 3.9 gm/dl (1.3-3.2); Potassium 3.7 mmoL/L (3.5-5.1); Total Protein,Serum 7.3 gm/dL (6.4-8.2)
--- NOTE | 2018-09-04 08:31 | Progress Note ---
<Delmi Curtis - Last Filed: 09/04/18 08:28> Internal Medicine - PN: Subj *Date: 09/04/18 *Time: 08:28 Interval history: Still feels poorly. States she is dry heaving now. She requires routine pain medicine for left abdominal pain. Bowels have not moved any further. She has been unable to retain p.o. liquids. She is voiding QS. She has been up to the bathroom frequently. She remains n.p.o. for GI visit today. Exam Vital signs and Labs for Last 24 Hours: Temp Pulse Resp BP Pulse Ox 98.2 F 60 18 164/98 H 100 09/04/18 08:00 09/04/18 08:00 09/04/18 08:00 09/04/18 08:00 09/04/18 08:00 Laboratory Results - last 24 hr 09/04/18 06:31: Sodium 141, Potassium 3.7, Chloride 105, Carbon Dioxide 27, Anion Gap 12.7, BUN 6 L, Creatinine 0.78, Estimated Creat Clear 109, Estimated GFR 78, Est GFR ( Amer) 95, Glucose 108 H, Calcium 8.5, Total Bilirubin 0.5, AST 16, ALT 30, Alkaline Phosphatase 121 H, Total Protein 7.3, Albumin 3.4, Globulin 3.9 H, Albumin/Globulin Ratio 0.9 L, Amylase 28, Lipase 220 I & O for Last 24 hours: Intake & Output 09/01/18 09/02/18 09/03/18 09/04/18 11:59 11:59 11:59 11:59 Intake Total 4266 Balance 4266 Weight 175 lb 3 oz - Constitutional no acute distress - *Routine Respiratory Exam Present: CTA bilaterally (Anteriorly and posteriorly) - *Routine Cardiovascular Exam Present: RRR - *Routine Abdominal Exam Present: soft, normoactive bowel sounds, tenderness (And left upper and mid quad), distended - *Routine Extremities Exam Absent: edema, calf tenderness - *Routine Neurological Exam Present: alert, oriented X3 - Routine Psychiatric Exam Comments: Tearful Assessment and Plan (1) Intractable vomiting with nausea Current visit: Yes Status: Acute Category: Medical Code(s): R11.2 - Nausea with vomiting, unspecified (2) Abdominal pain Current visit: Yes Status: Acute Category: Medical Code(s): R10.9 - Unspecified abdominal pain (3) HBP (high blood pressure) Current visit: Yes Status: Acute Category: Medical Code(s): I10 - Essential (primary) hypertension (4) Hiatal hernia Current visit: Yes Status: Acute Category: Medical Code(s): K44.9 - Diaphragmatic hernia without obstruction or gangrene (5) Pancreatic insufficiency Current visit: Yes Status: Acute Category: Medical Code(s): K86.89 - Other specified diseases of pancreas (6) Sinus bradycardia Current visit: Yes Status: Acute Category: Medical Code(s): R00.1 - Bradycardia, unspecified (7) Systemic lupus erythematosus Current visit: Yes Status: Acute Category: Medical Code(s): M32.9 - Systemic lupus erythematosus, unspecified - Assessment and plan all Dx Assessment and Plan for all problems:: Needs pancreatic enzymes p.o. Nurse will check with the pharmacy and if not she may bed from home med. N.p.o. for GI consult this a.m. Will continue with current pain and nausea management. <Kash Longo - Last Filed: 09/04/18 14:48> Exam Vital signs and Labs for Last 24 Hours: Temp Pulse Resp BP Pulse Ox 98.2 F 60 16 110/60 100 09/04/18 08:00 09/04/18 08:00 09/04/18 12:43 09/04/18 13:05 09/04/18 08:00 Laboratory Results - last 24 hr 09/04/18 06:31: Sodium 141, Potassium 3.7, Chloride 105, Carbon Dioxide 27, Anion Gap 12.7, BUN 6 L, Creatinine 0.78, Estimated Creat Clear 109, Estimated GFR 78, Est GFR ( Amer) 95, Glucose 108 H, Calcium 8.5, Total Bilirubin 0.5, AST 16, ALT 30, Alkaline Phosphatase 121 H, Total Protein 7.3, Albumin 3.4, Globulin 3.9 H, Albumin/Globulin Ratio 0.9 L, Amylase 28, Lipase 220 I & O for Last 24 hours: Intake & Output 09/02/18 09/03/18 09/04/18 09/05/18 11:59 11:59 11:59 11:59 Intake Total 4266 Balance 4266 4266 Weight 175 lb 3 oz Assessment and Plan (1) Intractable vomiting with nausea Current visit: Yes Status: Acute Category: Medical Code(s): R11.2 - Nausea with vomiting, unspecified (2) Abdominal pain Current visit: Yes Status: Acute Category: Medical Code(s): R10.9 - Unspecified abdominal pain (3) HBP (high blood pressure) Current visit: Yes Status: Acute Category: Medical Code(s): I10 - Essential (primary) hypertension (4) Hiatal hernia Current visit: Yes Status: Acute Category: Medical Code(s): K44.9 - Diaphragmatic hernia without obstruction or gangrene (5) Pancreatic insufficiency Current visit: Yes Status: Acute Category: Medical Code(s): K86.89 - Other specified diseases of pancreas (6) Sinus bradycardia Current visit: Yes Status: Acute Category: Medical Code(s): R00.1 - Bradycardia, unspecified (7) Systemic lupus erythematosus Current visit: Yes Status: Acute Category: Medical Code(s): M32.9 - Systemic lupus erythematosus, unspecified - Assessment and plan all Dx Assessment and Plan for all problems:: Patient seen and examined this AM. Clincally the same. F/u labs OK. Awaiting GI consult.
--- NOTE | 2018-09-04 11:10 | Consult Report ---
*Admission Date: 09/02/18 *Chief complaint: n/v *History of present illness: nausea/vomiting/ABD pain. This is a 48 year old female who presented to ED on 09/02 with ABD pain and 12 hr hx of diarrhea with blood and mucus. She has had intractable n/v since admission. She reports she has a hx of pancreatitis and ischemic colitis/ ulcerative colitis. [facility] she recently had colonoscopy in 2018. She did have non-contrast CT on this admission with evidence of stool retained in right colon but no evidence of sigmoid colitis. She is tender to palp in the LUQ and LLQ. She is not having much improvement of nausea with Phenergan. Labs have been normal since admission including amylase/lipase. No evidence of pancreatitis on CT. She has not had a BM since admission. [facility] History Medical History: Reports:: Arrhythmia, Deep Vein Thrombosis, Gastrointestinal Bleed, Hiatal Hernia, Hyperlipidemia, Hypertension, Palpitations Denies:: Atherosclerotic Heart Disease, Atrial Fibrillation, Cancer, Diabetes Mellitus Type 1, Diabetes Mellitus Type 2, MRSA Have you ever received a pneumonia vaccine?: No Have you received a flu vaccine this season?: No Other Medical History: Reports: Anemia, Arthritis, Fibromyalgia, Hoarseness, Sinus Problems, Other (systemic lupus; Degenerative disc disease) Laterality Cases: Left: Arthroscopy Knee Other Surgeries: Yes: Cholecystectomy, Colonoscopy, Colostomy, Diagnostic Lap, EGD, Hysterectomy-Partial, Tubal Ligation Amputation: No Fractures: Yes (bilateral upper and lower legs, ribs, orbital socket, shoulders, nasal, toe) - *Social History Educational Level: Attended College Smoking Status: Never smoker Alcohol Intake: never Occupational Status: disabled Housing: house Household Members: significant other, children, friend(s) Travel in the last 8 weeks: None - Psychiatric History Expresses thoughts of harming self/others: None Suicide Plan Description: No Plan *Family Hx:: Cancer, Hyperlipidemia, Hypertension Review of Systems - Constitutional Reports anorexia - *Gastrointestinal Reports abdominal pain, Reports change in bowel habits, Reports constipation, Reports loose stools, Reports bright, red blood in stools, Reports nausea, Re ports vomiting - *Neurologic Reports weakness, Denies abnormal walking, Denies confusion, Denies seizure-like activity, Denies dizziness, Denies tingling/numbness/burning sensations Meds Home Medications Medication Instructions Recorded Confirmed Type cloNIDine HCl [cloNIDine 0.2mg 0.2 mg PO TID 05/26/18 09/02/18 History Tablet] Gabapentin [Gabapentin 300mg Cap] 600 mg PO TIDP PRN 07/29/18 09/03/18 History Lisinopril/Hydrochlorothiazide 1 tab PO BID 07/30/18 09/02/18 History [Lisinopril-Hctz 20-25 mg Tab] Lipase/Protease/Amylase [Adrien Gray 1 each PO DAILY 09/02/18 09/02/18 History 3,000 Units Capsule] Carisoprodol [Soma 350mg tablet] 350 mg PO BIDP PRN 09/03/18 09/03/18 History Allergies Allergy/AdvReac Type Severity Reaction Status Date / Time guaifenesin [From ROBITUSSIN] Allergy Intermediate I-HIVES Verified 07/29/18 19:44 ketorolac [From TORADOL] Allergy Intermediate ITCHING/SWE Verified 07/29/18 19:44 LLING Gadolinium-Containing Allergy Verified 09/02/18 15:32 Contrast Medi pentazocine [From TALWIN] AdvReac Mild VOMITING Verified 07/29/18 19:44 Exam Vital signs and Labs for Last 24 Hours: Temp Pulse Resp BP Pulse Ox 98.2 F 60 18 164/98 H 100 09/04/18 08:00 09/04/18 08:00 09/04/18 08:43 09/04/18 08:00 09/04/18 08:00 Laboratory Results - last 24 hr 09/04/18 06:31: Sodium 141, Potassium 3.7, Chloride 105, Carbon Dioxide 27, Ani on Gap 12.7, BUN 6 L, Creatinine 0.78, Estimated Creat Clear 109, Estimated GFR 78, Est GFR ( Amer) 95, Glucose 108 H, Calcium 8.5, Total Bilirubin 0.5, AST 16, ALT 30, Alkaline Phosphatase 121 H, Total Protein 7.3, Albumin 3.4, Globulin 3.9 H, Albumin/Globulin Ratio 0.9 L, Amylase 28, Lipase 220 I & O for Last 24 hours: Intake & Output 09/01/18 09/02/18 09/03/18 09/04/18 23:59 23:59 23:59 23:59 Intake Total 3006 / 3006 1261 / 1261 Balance 3006 / 3006 1261 / 1261 Weight 175 lb 3 oz 175 lb 3 oz - *Routine Abdominal Exam Present: normoactive bowel sounds, tenderness Internal Medicine - CN: Reslt - Labs CBC & Chem 7: 09/03/18 07:25 09/04/18 06:31 Labs: BMP 09/04/18 06:31 Sodium 141 Potassium 3.7 Chloride 105 Carbon Dioxide 27 BUN 6 L Creatinine 0.78 Glucose 108 H Calcium 8.5 Liver Function 09/04/18 Range/Units 06:31 Total Bilirubin 0.5 (0.2-1.0) mg/dL AST 16 (15-37) U/L ALT 30 (12-78) U/L Alkaline Phosphatase 121 H (46-116) U/L Albumin 3.4 (3.4-5.0) gm/dL Assessment and Plan (1) Intractable vomiting with nausea Current visit: Yes Status: Acute Category: Medical Code(s): R11.2 - Nausea with vomiting, unspecified (2) Abdominal pain Current visit: Yes Status: Acute Category: Medical Code(s): R10.9 - Unspecified abdominal pain (3) HBP (high blood pressure) Current visit: Yes Status: Acute Category: Medical Code(s): I10 - Essential (primary) hypertension (4) Hiatal hernia Current visit: Yes Status: Acute Category: Medical Code(s): K44.9 - Diaphragmatic hernia without obstruction or gangrene (5) Pancreatic insufficiency Current visit: Yes Status: Acute Category: Medical Code(s): K86.89 - Other specified diseases of pancreas (6) Sinus bradycardia Current visit: Yes Status: Acute Category: Medical Code(s): R00.1 - Br adycardia, unspecified (7) Systemic lupus erythematosus Current visit: Yes Status: Acute Category: Medical Code(s): M32.9 - Systemic lupus erythematosus, unspecified - Assessment and plan all Dx Assessment and Plan for all problems:: 1.) ABD/pain n/v D/w Dr. Velarde. Recommends starting pt on REglan 5mg ACHS and bowel regimen to start movements. At this time no procedures are needed until records evaluated. She can also be scheduled for MRCP and check fecal elastase and fecal fat to determine level of pancreatic insufficiency. Pt to f/u as outpt 1-2 weeks after discharge.
--- NOTE | 2018-09-05 09:41 | Progress Note ---
<Delmi Curtis - Last Filed: 09/05/18 09:46> Internal Medicine - PN: Subj Interval history: Patient feels no better. She continues to have abdominal pain on the left and requires regular pain medicine. She continues to dry heave and requires anti- medics. Bowels have not moved although she is passing flatus. She states she slept a little bit. She is not retaining any fluids and refuses most of her meds. She was unable to take p.o. Reglan and this was started IV. She remains on IV fluids at 125 an hour. She was seen by GI yesterday and started on the Reglan. Note appreciated. She had an MRI of the abdomen with no significant new findings. Exam Vital signs and Labs for Last 24 Hours: Temp Pulse Resp BP Pulse Ox 98.5 F 62 17 135/81 98 09/05/18 08:00 09/05/18 08:00 09/05/18 08:00 09/05/18 08:00 09/05/18 08:00 I & O for Last 24 hours: Intake & Output 09/02/18 09/03/18 09/04/18 09/05/18 11:59 11:59 11:59 11:59 Intake Total 4267 / 4267 2503 / 2503 Balance 4267 / 4267 2503 / 2503 Weight 175 lb 3 oz Radiology Reports for the Last 24 Hours: 09/04/2018 MR of the abdomen IMPRESSION:........... 1. Cholecystectomy. 2. The generous caliber common duct, 8 mm diameter is compatible with postcholecystectomy changes..-. Similar appearance dating back to August 2017 CT. No significant new findings. . No stones nor lesion evident at the common duct. \ 3. Pancreas duct appears satisfactory in caliber. . No fluid collections about pancreas. No pseudocyst - Constitutional no acute distress - *Routine Respiratory Exam Present: CTA bilaterally (Anteriorly and posteriorly) - *Routine Cardiovascular Exam Present: RRR - *Routine Abdominal Exam Present: soft, normoactive bowel sounds, tenderness (Left quadrants) - *Routine Extremities Exam Absent: edema, calf tenderness - *Routine Neurological Exam Present: alert, oriented X3 Assessment and Plan (1) Intractable vomiting with nausea Current visit: Yes Status: Acute Category: Medical Code(s): R11.2 - Nausea with vomiting, unspecified (2) Abdominal pain Current visit: Yes Status: Acute Category: Medical Code(s): R10.9 - Unspec ified abdominal pain (3) HBP (high blood pressure) Current visit: Yes Status: Acute Category: Medical Code(s): I10 - Essential (primary) hypertension (4) Hiatal hernia Current visit: Yes Status: Acute Category: Medical Code(s): K44.9 - Diaphragmatic hernia without obstruction or gangrene (5) Pancreatic insufficiency Current visit: Yes Status: Acute Category: Medical Code(s): K86.89 - Other specified diseases of pancreas (6) Sinus bradycardia Current visit: Yes Status: Acute Category: Medical Code(s): R00.1 - Bradycardia, unspecified (7) Systemic lupus erythematosus Current visit: Yes Status: Acute Category: Medical Code(s): M32.9 - Systemic lupus erythematosus, unspecified - Assessment and plan all Dx Assessment and Plan for all problems:: We will continue with IV Reglan, IV fluids and pain and anti-emetics. Patient states they are bringing her pancreas meds from home. Encouraged patient to be out of bed more. <Kash Longo - Last Filed: 09/05/18 17:21> Exam Vital signs and Labs for Last 24 Hours: Temp Pulse Resp BP Pulse Ox 98.5 F 62 16 131/73 98 09/05/18 08:00 09/05/18 08:00 09/05/18 14:11 09/05/18 13:53 09/05/18 08:00 I & O for Last 24 hours: Intake & Output 09/03/18 09/04/18 09/05/18 09/06/18 11:59 11:59 11:59 11:59 Intake Total 4266 / 42 2503 / 2503 600 / 600 Balance 4266 / 42 2503 / 2503 600 / 600 Weight 175 lb 3 oz Assessment and Plan (1) Intractable vomiting with nausea Current visit: Yes Status: Acute Category: Medical Code(s): R11.2 - Nausea with vomiting, unspecified (2) Abdominal pain Current visit: Yes Status: Acute Category: Medical Code(s): R10.9 - Unspecified abdominal pain (3) HBP (high blood pressure) Current visit: Yes Status: Acute Category: Medical Code(s): I10 - Essential (primary) hypertension (4) Hiatal hernia Current visit: Yes Status: Acute Category: Medical Code(s): K44.9 - Diaphragmatic hernia without obstruction or gangrene (5) Pancreatic insufficiency Current visit: Yes Status: Acute Category: Medical Code(s): K86.89 - Other specified diseases of pancreas (6) Sinus bradycardia Current visit: Yes Status: Acute Category: Medical Code(s): R00.1 - Bradycardia, unspecified (7) Systemic lupus erythematosus Current visit: Yes Status: Acute Category: Medical Code(s): M32.9 - Systemic lupus erythematosus, unspecified - Assessment and plan all Dx Assessment and Plan for all problems:: Patient seen and examined. She refused Miralax and states she vomited her oral meds last night. Diet remains NPO but Dr. Velarde' GI consult noted. Abdominal MR reviewed showing nothing acute. Will advance to full liquid diet. Add Lactulose which she feels she can tolerate and Dulcolax tab.
--- NOTE | 2018-09-06 08:18 | Progress Note ---
<Latia Townsend - Last Filed: 09/06/18 08:14> Internal Medicine - PN: Subj *Date: 09/06/18 *Time: 08:14 Interval history: Patient states she feels terrible this morning. She states she ate breakfast and is now very nauseated. She states she vomited once last night but has not vomited yet this morning. She is still having significant left upper abdominal pain. She is now having very watery diarrhea. She states her son is supposed to be bringing her Creon from home as she thinks this will make her feel better. Exam Vital signs and Labs for Last 24 Hours: Temp Pulse Resp BP Pulse Ox 98.1 F 67 17 152/86 H 98 09/06/18 07:53 09/06/18 07:53 09/06/18 07:53 09/06/18 07:53 09/06/18 07:53 Laboratory Results - last 24 hr 09/05/18 16:00: Stl Aeromonas (PCR) Not detected, Stl C. cayetanensis PCR Not detected, Stool Rotavirus (PCR) Not detected, Stl Adenov F 40/41 PCR Not detected, Stool Astrovirus (PCR) Not detected, Stool Campylobacter PCR Not detected, Stl C.difficile Tox PCR Not detected, Stool Cryptosporidium PCR Not detected, Stl E.coli Shiga Tox PCR Not detected, Stool E coli O157 PCR Not detected, Stl Enterotoxigenic E PCR Not detected, Stool EPEC (PCR) Not detected, Stool EAEC (PCR) Not detected, Stl E. histolytica PCR Not detected, Stool Giardia Lamblia PCR Not detected, Stool Salmonella PCR Not detected, Stool Sapovirus (PCR) Not detected, Stl P. shigelloides PCR Not detected, Stl Shigella/EIEC PCR Not detected, St Y.enterocolitica PCR Not detected, Stool Vibrio (PCR) Not detected, Stl Vibrio cholerae PCR Not detected, Stl Norovirus GI/GII PCR Not detected I & O for Last 24 hours: Intake & Output 09/03/18 09/04/18 09/05/18 09/06/18 11:59 11:59 11:59 11:59 Intake Total 4266 / 42 2503 / 2503 4442 / 4442 Balance 4266 / 42 2503 / 2503 4442 / 4442 Weight 175 lb 3 oz - Constitutional no acute distress - *Routine Respiratory Exam Present: CTA bilaterally - *Routine Cardiovascular Exam Present: RRR - *Routine Abdominal Exam Present: soft, normoactive bowel sounds, tenderness (diffuse but worse in the LUQ) - *Routine Extremities Exam Absent: cyanosis, clubbing, edema Assessment and Plan (1) Intractable vomiting with nausea Current visit: Yes Status: Acute Category: Medical Code(s): R11.2 - Nausea with vomiting, unspecified (2) Abdominal pain Current visit: Yes Status: Acute Category: Medical Code(s): R10.9 - Unspecified abdominal pain (3) HBP (high blood pressure) Current visit: Yes Status: Acute Category: Medical Code(s): I10 - Essential (primary) hypertension (4) Hiatal hernia Current visit: Yes Status: Acute Category: Medical Code(s): K44.9 - Diaphragmatic hernia without obstruction or gangrene (5) Pancreatic insufficiency Current visit: Yes Status: Acute Category: Medical Code(s): K86.89 - Other specified diseases of pancreas (6) Sinus bradycardia Current visit: Yes Status: Acute Category: Medical Code(s): R00.1 - Bradycardia, unspecified (7) Systemic lupus erythematosus Current visit: Yes Status: Acute Category: Medical Code(s): M32.9 - Systemic lupus erythematosus, unspecified - Assessment and plan all Dx Assessment and Plan for all problems:: Will discuss further care with Dr. Longo and await patient's Creon. <Kash Longo - Last Filed: 09/06/18 09:32> Exam Vital signs and Labs for Last 24 Hours: Temp Pulse Resp BP Pulse Ox 98.1 F 67 17 152/86 H 98 09/06/18 07:53 09/06/18 07:53 09/06/18 07:53 09/06/18 07:53 09/06/18 07:53 Laboratory Results - last 24 hr 09/05/18 16:00: Stl Aeromonas (PCR) Not detected, Stl C. cayetanensis PCR Not detected, Stool Rotavirus (PCR) Not detected, Stl Adenov F 40/41 PCR Not detected, Stool Astrovirus (PCR) Not detected, Stool Campylobacter PCR Not detected, Stl C.difficile Tox PCR Not detected, Stool Cryptosporidium PCR Not detected, Stl E.coli Shiga Tox PCR Not detected, Stool E coli O157 PCR Not detected, Stl Enterotoxigenic E PCR Not detected, Stool EPEC (PCR) Not detected, Stool EAEC (PCR) Not detected, Stl E. histolytica PCR Not detected, Stool Giardia Lamblia PCR Not detected, Stool Salmonella PCR Not detected, Stool Sapovirus (PCR) Not detected, Stl P. shigelloides PCR Not detected, Stl Shigella /EIEC PCR Not detected, St Y.enterocolitica PCR Not detected, Stool Vibrio (PCR) Not detected, Stl Vibrio cholerae PCR Not detected, Stl Norovirus GI/GII PCR Not detected I & O for Last 24 hours: Intake & Output 09/03/18 09/04/18 09/05/18 09/06/18 11:59 11:59 11:59 11:59 Intake Total 4266 / 4267 2503 / 2503 4442 / 4442 Balance 4267 / 4267 2503 / 2503 4442 / 4442 Weight 175 lb 3 oz Assessment and Plan (1) Intractable vomiting with nausea Current visit: Yes Status: Acute Category: Medical Code(s): R11.2 - Nausea with vomiting, unspecified (2) Abdominal pain Current visit: Yes Status: Acute Category: Medical Code(s): R10.9 - Unspecified abdominal pain (3) HBP (high blood pressure) Current visit: Yes Status: Acute Category: Medical Code(s): I10 - Essential (primary) hypertension (4) Hiatal hernia Current visit: Yes Status: Acute Category: Medical Code(s): K44.9 - Diaphragmatic hernia without obstruction or gangrene (5) Pancreatic insufficiency Current visit: Yes Status: Acute Category: Medical Code(s): K86.89 - Other specified diseases of pancreas (6) Sinus bradycardia Current visit: Yes Status: Acute Category: Medical Code(s): R00.1 - Bradycardia, unspecified (7) Systemic lupus erythematosus Current visit: Yes Status: Acute Category: Medical Code(s): M32.9 - Systemic lupus erythematosus, unspecified - Assessment and plan all Dx Assessment and Plan for all problems:: On my assessment, she looks better. Only vomited once last evening. States she had several diarrheal stools during the night but none documented by staff. Her pain is about the same. Family brought her Creon in this morning which will be started. Will advance diet. Probably home tomorrow.
--- NOTE | 2018-09-07 08:23 | Progress Note ---
Internal Medicine - PN: Subj Interval history: Patient states she is feeling only slightly better today. She is still having abdominal pain. She states she has not vomited since 4 AM. She is concerned with her right arm as her IV infiltrated and she has some erythema around the site. She tolerated a diet this morning. Exam Vital signs and Labs for Last 24 Hours: Temp Pulse Resp BP Pulse Ox 97.5 F L 86 18 121/81 99 09/07/18 08:00 09/07/18 08:00 09/07/18 08:00 09/07/18 08:00 09/07/18 08:00 I & O for Last 24 hours: Intake & Output 09/04/18 09/05/18 09/06/18 09/07/18 11:59 11:59 11:59 11:59 Intake Total 4267 / 4267 2503 / 2503 4442 / 4442 3518 / 3518 Balance 4267 / 4267 2503 / 2503 4442 / 4442 3518 / 3518 Weight 175 lb 3.01 oz - Constitutional no acute distress - *Routine Respiratory Exam Present: CTA bilaterally - *Routine Cardiovascular Exam Present: RRR - *Routine Abdominal Exam Present: tenderness (diffuse but worse in the LUQ) - *Routine Extremities Exam Absent: cyanosis, clubbing, edema Comments: erythema of the right upper arm with some ttp Assessment and Plan (1) Intractable vomiting with nausea Current visit: Yes Status: Acute Category: Medical Code(s): R11.2 - Nausea with vomiting, unspecified (2) Abdominal pain Current visit: Yes Status: Acute Category: Medical Code(s): R10.9 - Unspecified abdominal pain (3) HBP (high blood pressure) Current visit: Yes Status: Acute Category: Medical Code(s): I10 - Essential (primary) hypertension (4) Hiatal hernia Current visit: Yes Status: Acute Category: Medical Code(s): K44.9 - Diaphragmatic hernia without obstruction or gangrene (5) Pancreatic insufficiency Current visit: Yes Status: Acute Category: Medical Code(s): K86.89 - Other specified diseases of pancreas (6) Sinus bradycardia Current visit: Yes Status: Acute Category: Medical Code(s): R00.1 - Bradycardia, unspecified (7) Systemic lupus erythematosus Current visit: Yes Status: Acute Category: Medical Code(s): M32.9 - Systemic lupus erythematosus, unspecified (8) IV infiltrate Current visit: Yes Status: Acute Category: Medical Code(s): T80.1XXA - Vascular complications following infusion, transfusion and therapeutic injection, initial encounter - Assessment and plan all Dx Assessment and Plan for all problems:: Patient is going to be discharged home today. She will be discharged on Reglan and will need to follow-up with her PCP as well as Dr. Velarde on an outpatient basis. Will get a heating pad to apply to her right upper arm for the next few hours before discharge.
--- NOTE | 2018-09-07 21:55 | Discharge Summary ---
General - General Admission date:: 09/02/18 <Kash Longo - 09/14/18 18:12> 09/02/18 <Latia Townsend - 09/07/18 21:55> Discharge date: 09/07/18 <KristianLatia - 09/07/18 21:55> HPI HPI: Ms. Tapia is a 48-year-old white female with a history of hypertension, chronic pancreatitis, pancreatic insufficiency, lupus erythematosus, and hiatal hernia who presented to the emergency room yesterday afternoon with a 3-4-day history of persistent nausea, vomiting and what she describes as explosive diarrhea with some blood, associated with abdominal pain. Of note she was just hospitalized at [facility] in July with E. coli colitis. She states she has never felt completely well since that time. She has an extensive GI history and has been followed by a hot strip mill inspector in [place], [place] however she recently moved back to [facility] and has not established care in this area. She has seen Dr. Mehta from in the past. She states on her most recent upper and lower endoscopy last fall she was told she had an ulcer in her esophagus and some type of infection as well as an ulcer in her colon. She does not recall being diagnosed with H. pylori, Crohn's disease, or ulcerative colitis. She is treated with pancreatic enzymes and Protonix. She does not recall ever having an ERCP or MRCP. On evaluation in the emergency room, her abdominal CT scan showed resolution of the previously noted sigmoid colitis from her July CT scan. Her white count was normal and pancreatic enzymes were normal. Because of her intractable nausea and and her abdominal pain she has been admitted for further evaluation and treatment. Overnight she has persisted with nausea and mostly dry heaves. She has had no stool since being admitted to the hospital therefore no stool panel has been obtained. She localizes her pain mostly in the left side of the abdomen. No history of fever. She was also noted to be bradycardic in the emergency room and she states this is new. She has a history of hypertension and has had a cardiac workup including an echocardiogram which she states was normal. She has not been able to tolerate any oral medications since admission. <Latia Townsend - 09/07/18 21:55> Hospital Course Hospital Course: She was receiving Zofran and Phenergan. IV access was a bit of a problem but nurses were able to get one started in the right antecubital space. She was receiving IV Pepcid. She was unable to tolerate any oral medications. A PCR diarrhea panel was ordered initially but was not obtained as she had not produced any stool since admission. Dr. Velarde was consulted for further recommendations. Of note, she had been in sinus bradycardia in the 50s likely related to her clonidine. Blood pressure was normal to slightly elevated. It was monitored. She required routine pain medication for her left- sided abdominal pain. She was initially unable to retain any p.o. liquids. She did feel she needed her pancreatic enzymes and nursing contacted the pharmacy. They do not carry creon, therefore her son was going to bring it from home. She was seen by Dr. Prachi Millan nurse practitioner. They recommended starting the patient on Reglan 5 mg before meals and at bedtime and a bowel regimen to start bowel movements. They felt she could also be scheduled for an ERCP and fecal elastase and fecal fat could be checked to determine the level of pancreatic insufficiency. Dr. Velarde felt her present pain was functional abdominal pain. He wanted to obtain her records from Josesito's daughters and have her follow-up as an outpatient in his office. The patient continued with abdominal pain and dry heaving. She was unable to retain any fluids and refused most of her medications. She was unable to take p.o. Reglan, therefore she was started on IV Reglan. She had an MRCP showing a prior cholecystectomy and no significant new findings. She was advanced to a full liquid diet and lactulose was added due to her lack of bowel movements. She also felt she could tolerate a Dulcolax tablet. After taking this, the patient then began having numerous watery stools. She tried to eat breakfast and got nauseated. She continued to vomit. Her son did bring her Creon and this was started. His stool was collected for a PCR diarrhea panel and it was negative. Her symptoms only slightly improved. She continued with abdominal pain but her vomiting and diarrhea did resolve. She did have an IV infiltrate in the right arm and had some erythema around the site. A heating pad was applied to this. She was able to tolerate a diet and was stable to be discharged home on Reglan. She will need to follow-up with her PCP as well as Dr. Velarde on an outpatient basis. <Latia Townsend - 09/07/18 21:55> Objective Vital signs: Temp Pulse Resp BP Pulse Ox 97.5 F L 86 18 121/81 100 09/07/18 08:00 09/07/18 08:00 09/07/18 08:00 09/07/18 08:00 09/07/18 08:00 <Kash Longo - 09/14/18 18:12> Temp Pulse Resp BP Pulse Ox 97.5 F L 86 18 121/81 100 09/07/18 08:00 09/07/18 08:00 09/07/18 08:00 09/07/18 08:00 09/07/18 08:00 <Latia Townsend - 09/07/18 21:55> Narrative: She is alert and oriented and appears in mild to moderate distress. She is lying in bed on her right side with her knees drawn up and HOB elevated at 30 degrees. Color is adequate. HEENT shows the cranium to be atraumatic and normocephalic. Sclerae and conjunctive are clear. Nares patent. Oropharynx shows slightly dry mucous membranes. Neck is supple with no masses, thyromegaly , or bruits. Lungs are clear to auscultation. Heart is regular with no murmurs. Abdomen is soft and nondistended. There is mild diffuse abdominal tenderness; left slightly worse than right. Bowel sounds are present but diminished. No rebound or guarding. Extremities show no edema. <Latia Townsend - 09/07/18 21:55> DS: Diagnosis - Discharge Diagnosis (1) Intractable vomiting with nausea Status: Acute (2) Abdominal pain Status: Acute (3) HBP (high blood pressure) Status: Acute (4) Hiatal hernia Status: Acute (5) Pancreatic insufficiency Status: Acute (6) Sinus bradycardia Status: Acute (7) Systemic lupus erythematosus Status: Acute (8) IV infiltrate Status: Acute <Latia Townsend - 09/07/18 21:36> (1) Intractable vomiting with nausea Status: Acute (2) Abdominal pain Status: Acute (3) HBP (high blood pressure) Status: Acute (4) Hiatal hernia Status: Acute (5) Pancreatic insufficiency Status: Acute (6) Sinus bradycardia Status: Acute (7) Systemic lupus erythematosus Status: Acute (8) IV infiltrate Status: Acute <Kash Longo - 09/14/18 18:12> Discharge Plan - Patient Discharge Instructions Patient Instructions: DI for Pancreatitis, DI for Dehydration -- Adult, DI for Systemic Lupus Erythematosus, DI for Nausea -- Adult, DI for Vomiting -- Adult <Kash Longo - 09/14/18 18:12> Forms: <Kash Longo - 09/14/18 18:12> - Follow up Plan Follow up with: Derek Velarde MD [Staff Physician] - 2 weeks Gordy Cruz [Primary Care Provider] - 1 week <Kash Longo - 09/14/18 18:12> Disposition: Home, Self-Care <Kash Longo - 09/14/18 18:12> Home Medications: Home Medications Medication Instructions Recorded Confirmed Type RX: cloNIDine HCl [cloNIDine 0.2mg 0.2 mg PO TID 05/26/18 09/02/18 History Tablet] RX: Gabapentin [Gabapentin 300mg 600 mg PO TIDP PRN 07/29/18 09/03/18 History Cap] RX: Lisinopril/Hydrochlorothiazide 1 tab PO BID 07/30/18 09/02/18 History [Lisinopril-Hctz 20-25 mg Tab] RX: Carisoprodol [Soma 350mg 350 mg PO BIDP PRN 09/03/18 09/03/18 History tablet] RX: Lipase/Protease/Amylase [Creon 2 each PO DIRECTED 09/06/18 09/06/18 History 24,000 Units Capsule] Metoclopramide HCl [Reglan 5mg 5 mg PO ACHS 30 Days #120 tab 09/07/18 Rx Tablet] cephALEXin [Keflex 500mg Cap] 1,000 mg PO BID 7 Days #14 cap 09/08/18 Rx <Kash Longo - 09/14/18 18:12> Prescriptions/Medication Reconciliation: New Metoclopramide HCl [Reglan 5mg Tablet] 5 mg PO ACHS 30 Days #120 tab Continue RX: cloNIDine HCl [cloNIDine 0.2mg Tablet] 0.2 mg PO TID RX: Gabapentin [Gabapentin 300mg Cap] 600 mg PO TIDP PRN PRN Reason: NEUROPATHY RX: Lipase/Protease/Amylase [Adrien Gray 24,000 Units Capsule] 2 each PO DIRECTED RX: Lisinopril/Hydrochlorothiazide [Lisinopril-Hctz 20-25 mg Tab] 1 tab PO BID RX: Carisoprodol [Soma 350mg tablet] 350 mg PO BIDP PRN PRN Reason: Muscle Spasm No Action cephALEXin [Keflex 500mg Cap] 1,000 mg PO BID 7 Days #14 cap <Kash Longo - 09/14/18 18:12> - Additional Information Additional Information: Concur with plan for discharge. <Kash Longo - 09/14/18 18:12>
== END 2018-09-07 13:01 | disposition home or self-care (01) ==
LOC: 2ND 12:16 → ER 12:16 → 2ND 15:31
PROVIDERS: ADMIT Family Medicine; ATTEND Family Medicine
DX: R19.7 Diarrhea, unspecified; R11.2 Nausea with vomiting, unspecified; Z86.718 Personal history of other venous thrombosis and embolism; R10.32 Left lower quadrant pain; Z88.8 Allergy status to other drugs, medicaments and biological substances; R10.12 Left upper quadrant pain; K86.89 Other specified diseases of pancreas; K44.9 Diaphragmatic hernia without obstruction or gangrene; T80.1XXA Vascular complications following infusion, transfusion and therapeutic injection, initial encounter; Z79.899 Other long term (current) drug therapy; K52.9 Noninfective gastroenteritis and colitis, unspecified; I10 Essential (primary) hypertension; R00.1 Bradycardia, unspecified; M32.9 Systemic lupus erythematosus, unspecified; E86.0 Dehydration
CPT/HCPCS: 36415; 74176; 74183; 76376; 80048; 80053; 81001; 82150; 82656; 82705; 83690; 83735; 85025; 87507; 93005; 96365; 96375; 99284; A9576; G0378; J2405

== ENCOUNTER → 2018-09-15 11:02 | Outpatient (CLI) | payer OTHER, SELFPAY ==
--- NOTE | 2018-09-15 11:09 | MM_ITS ---
MM Dig screening mamm BI w/CAD CAD Screening COMPARISON: Digital mammograms with CAD 11/22/2016 and 10/17/2015 INDICATION: There is a history of breast cancer patient's mother and paternal and maternal grandmothers. There has been previous surgery left breast for benign disease. TECHNIQUE: Standard CC and MLO images were obtained. R2 CAD reviewed. FINDINGS: Moderate diffuse fibroglandular densities are seen throughout both breasts. Again noted is a metallic marker right breast. There is a stable asymmetric density upper outer quadrant left breast. There is no suspicious lesion and there are no suspicious microcalcifications. IMPRESSION: Moderate breast density with no suspicious lesion seen BI-RADS Category: 2 Benign Finding(s) RECOMMENDED FOLLOW-UP: 1YR - 1 YEAR FOLLOW-UP (A letter has been sent to the patient regarding results of the study.)
== END ==
PROVIDERS: PCP Family Medicine; Visit Provider Family Medicine
DX: Z12.31 Encounter for screening mammogram for malignant neoplasm of breast (principal)
CPT/HCPCS: 77067